=== PATIENT | male | born 1985 | race Two or more races ===

== ENCOUNTER 2017-11-07 21:52 | Emergency (ER) | payer OTHER | END 2017-11-08 01:14 | disposition home or self-care (01) | LOC: FTE 21:52 → E/R 11-08 01:14 | DX: S62.91XA Unspecified fracture of right hand, initial encounter for closed fracture (principal); W22.8XXA Striking against or struck by other objects, initial encounter; Y92.9 Unspecified place or not applicable | CPT/HCPCS: 29125; 99282-25 ==